=== PATIENT | male | born 1990 | race Hispanic/Latino ===

== ENCOUNTER 2018-04-15 12:43 | Emergency (ER) | payer BC ==
[2018-04-15 14:16] LABS: #Basophils 0.1 thou/uL (0.0-0.2); #Lymphocytes 2.7 thou/uL (1.20-3.40); #Monocytes 0.5 thou/uL (0.11-0.59); #Neutrophils 3.3 thou/uL (1.40-6.50); %Eosinophils 0.7 % (0.0-10.0); %Lymphocytes 41.3 % (21.0-51.0); %Monocytes 6.8 % (0.0-10.0); %Neutrophils 50.1 % (42.0-75.0); Hemoglobin 14.4 g/dL (14.0-18.0); Mean Corpuscular Volume 87.8 fL (78.0-98.0); Mean Platelet Volume 6.3 fL (7.4-10.4); Platelet Count 433 thou/uL (130-400); Red Blood Cell (RBC) Count 4.98 mill/uL (4.70-6.10); White Blood Cell (WBC) Count 6.6 thou/uL (4.8-10.8)
[2018-04-15 14:40] LABS: ALT (SGPT) 37 U/L (8-55); AST (SGOT) 22 U/L (5-34); Albumin 4.6 g/dL (3.5-5.0); Alkaline Phosphatase 76 U/L (40-150); Anion Gap 14 mmol/L (10-20); BUN (Urea Nitrogen) 9 mg/dL (8.9-20.6); Bilirubin, Total 0.4 mg/dL (0.2-1.2); Calc. Creatinine Clearance 0 mL/min (70-130); Calcium 9.7 mg/dL (7.8-10.44); Carbon Dioxide 26 mmol/L (22-29); Chloride 102 mmol/L (98-107); Estimated GFR-MDRD Greater than 90; Globulin 3.9 g/dL (2.4-3.5); Glucose 95 mg/dL (70-105); Potassium 3.8 mmol/L (3.5-5.1); Protein, Total 8.5 g/dL (6.0-8.3); Sodium 138 mmol/L (136-145)
[2018-04-15 14:44] LABS: Bilirubin Negative (Negative); Blood, Urine Negative (Negative); Clarity CLEAR (Clear); Glucose, Urine (Dipstick) Negative (Negative); Leukocyte Negative (Negative); Nitrite Negative (Negative); Protein, Urine (Dipstick) Negative (Neg-Trace); Specific Gravity, Urine 1.003 (1.002-1.036); Urobilinogen 0.2 mg/dL (0.2-1.0)
== END 2018-04-15 15:41 | disposition home or self-care (01) ==
LOC: ERS 12:43
DX: K92.1 Melena (principal); R19.7 Diarrhea, unspecified
CPT/HCPCS: 80053; 81003; 82274; 85025; 86850; 86900; 86901; 87045; 87046; 87449; 87899; 99283

== ENCOUNTER 2019-06-06 16:22 | Emergency (ER) | payer BC | END 2019-06-06 17:31 | disposition left against medical advice (07) | LOC: ERS 16:22 | DX: Z53.21 Procedure and treatment not carried out due to patient leaving prior to being seen by health care provider (principal) ==

== ENCOUNTER 2019-07-10 03:30 | Emergency (ER) | payer BC ==
[2019-07-10] MEDS ORDERED: Morphine 4 MG/ML VIAL ONE (04:22)
[2019-07-10] MEDS ORDERED: Ondansetron PF 4 MG/2 ML Vial ONE (04:22)
[2019-07-10 04:53] LABS: Bacteria/HPF None Seen HPF (None Seen); Bilirubin Negative (Negative); Blood, Urine Negative (Negative); Clarity Clear (Clear); Glucose, Urine (Dipstick) Normal (Negative); Leukocyte Negative Leu/uL (Negative); Nitrite Negative (Negative); Protein, Urine (Dipstick) 30 mg/dL (Neg-Trace); RBC/HPF 0-3 HPF (0-3); Squamous Epithelial 0-3 HPF (0-3); Urobilinogen Normal mg/dL (Less than 2); WBC/HPF 0-3 HPF (0-3)
[2019-07-10 04:55] LABS: #Basophils 0.1 thou/uL (0.0-0.2); #Eosinphils 0.1 thou/uL (0.0-0.7); #Lymphocytes 3.6 thou/uL (1.20-3.40); #Monocytes 0.9 thou/uL (0.11-0.59); #Neutrophils 7.3 thou/uL (1.40-6.50); %Eosinophils 0.5 % (0.0-10.0); %Lymphocytes 30.1 % (21.0-51.0); %Monocytes 7.3 % (0.0-10.0); %Neutrophils 61.1 % (42.0-75.0); Hemoglobin 15.1 g/dL (14.0-18.0); Mean Corpuscular HGB CONC 33.6 g/dL (32.0-36.0); Mean Corpuscular Hemoglobin 29.2 pg (27.0-31.0); Mean Corpuscular Volume 87.1 fL (78.0-98.0); Mean Platelet Volume 6.8 fL (7.4-10.4); Platelet Count 404 thou/uL (130-400); RBC Distribution Width 11.9 % (11.5-14.5); Red Blood Cell (RBC) Count 5.17 mill/uL (4.70-6.10); White Blood Cell (WBC) Count 11.9 thou/uL (4.8-10.8)
[2019-07-10 05:18] LABS: ALT (SGPT) 22 U/L (8-55); AST (SGOT) 19 U/L (5-34); Albumin 4.5 g/dL (3.5-5.0); Alkaline Phosphatase 81 U/L (40-110); Anion Gap 15 mmol/L (10-20); BUN (Urea Nitrogen) 15 mg/dL (8.9-20.6); Bilirubin, Total 0.4 mg/dL (0.2-1.2); Calc. Creatinine Clearance 0 mL/min (70-130); Calcium 9.9 mg/dL (7.8-10.44); Carbon Dioxide 22 mmol/L (22-29); Chloride 105 mmol/L (98-107); Estimated GFR-MDRD Greater than 90; Globulin 3.9 g/dL (2.4-3.5); Glucose 117 mg/dL (70-105); Lipase 23 U/L (8-78); Protein, Total 8.4 g/dL (6.0-8.3); Sodium 138 mmol/L (136-145)
== END 2019-07-10 06:32 | disposition home or self-care (01) ==
LOC: ERS 03:30
DX: R19.7 Diarrhea, unspecified (principal); R11.2 Nausea with vomiting, unspecified; R10.811 Right upper quadrant abdominal tenderness; R10.817 Generalized abdominal tenderness; R10.9 Unspecified abdominal pain; F17.290 Nicotine dependence, other tobacco product, uncomplicated; Z79.891 Long term (current) use of opiate analgesic; Z79.899 Other long term (current) drug therapy
CPT/HCPCS: 80053; 81003; 81015; 83690; 85025; 96361; 96372; 96374; 96375; J0500; J2270; J2405

== ENCOUNTER 2019-07-12 18:16 | Emergency (ER) | payer BC ==
[~2019-07-12 18:16] MED LIST: Iopamidol-370 76% 500 ML 1 ML ONE
[2019-07-12] MEDS ORDERED: Ondansetron PF 4 MG/2 ML Vial ONE (20:43)
[2019-07-12] MEDS ORDERED: Morphine 4 MG/ML VIAL ONE (20:43)
[2019-07-12 20:59] LABS: #Basophils 0.1 thou/uL (0.0-0.2); #Eosinphils 0.1 thou/uL (0.0-0.7); #Lymphocytes 3.5 thou/uL (1.20-3.40); #Monocytes 0.8 thou/uL (0.11-0.59); #Neutrophils 5.2 thou/uL (1.40-6.50); %Basophils 0.8 % (0.0-1.0); %Eosinophils 0.5 % (0.0-10.0); %Lymphocytes 36.7 % (21.0-51.0); %Monocytes 7.9 % (0.0-10.0); %Neutrophils 54.1 % (42.0-75.0); Hemoglobin 15.2 g/dL (14.0-18.0); Mean Corpuscular HGB CONC 33.6 g/dL (32.0-36.0); Mean Corpuscular Hemoglobin 29.2 pg (27.0-31.0); Mean Corpuscular Volume 86.8 fL (78.0-98.0); Mean Platelet Volume 6.7 fL (7.4-10.4); Platelet Count 440 thou/uL (130-400); RBC Distribution Width 11.8 % (11.5-14.5); Red Blood Cell (RBC) Count 5.23 mill/uL (4.70-6.10); White Blood Cell (WBC) Count 9.6 thou/uL (4.8-10.8)
[2019-07-12 21:05] LABS: Bilirubin Negative (Negative); Blood, Urine Negative (Negative); Clarity Clear (Clear); Glucose, Urine (Dipstick) Normal (Negative); Leukocyte Negative Leu/uL (Negative); Nitrite Negative (Negative); Protein, Urine (Dipstick) 10 mg/dL (Neg-Trace); Urobilinogen Normal mg/dL (Less than 2)
[2019-07-12 21:22] LABS: ALT (SGPT) 56 U/L (8-55); AST (SGOT) 43 U/L (5-34); Albumin 4.7 g/dL (3.5-5.0); Alkaline Phosphatase 90 U/L (40-110); Anion Gap 16 mmol/L (10-20); BUN (Urea Nitrogen) 11 mg/dL (8.9-20.6); Bilirubin, Total 0.4 mg/dL (0.2-1.2); Calc. Creatinine Clearance 0 mL/min (70-130); Calcium 9.6 mg/dL (7.8-10.44); Carbon Dioxide 28 mmol/L (22-29); Chloride 102 mmol/L (98-107); Estimated GFR-MDRD 87; Globulin 3.9 g/dL (2.4-3.5); Glucose 80 mg/dL (70-105); Lipase 21 U/L (8-78); Potassium 3.4 mmol/L (3.5-5.1); Protein, Total 8.6 g/dL (6.0-8.3); Sodium 143 mmol/L (136-145)
--- NOTE | 2019-07-12 21:28 | CT ---
CT Abdomen Pelvis W Con HISTORY: Abdominal pain. Diarrhea and blood in stool. History of appendectomy. COMPARISON: None. FINDINGS: The lung bases are clear of infiltrates. There are diffuse fatty changes of the liver. The spleen pancreas and gallbladder regions appear unre markable. Right and left adrenal glands and right and left kidneys are normal in size. There is no significant periaortic or mesenteric adenopathy. CT of pelvis performed with contrast enhancement: Postop appendectomy changes are seen. No free fluid , adenopathy or mass. Postoperative changes at the L5-S1 level are noted, the right S1 pedicle screw is fractured as is the left. There is a moderate spondylolisthesis present and severe disc narrowing. IMPRESSION: 1. Fatty change of the liver. 2. Postoperative changes at the L5-S1 level.
== END 2019-07-12 21:53 | disposition home or self-care (01) ==
LOC: ERS 18:16
DX: R10.84 Generalized abdominal pain (principal); R19.7 Diarrhea, unspecified; R10.812 Left upper quadrant abdominal tenderness; F17.290 Nicotine dependence, other tobacco product, uncomplicated; Z79.891 Long term (current) use of opiate analgesic; Z79.899 Other long term (current) drug therapy
CPT/HCPCS: 74177; 80053; 81003; 83690; 85025; 96361; 96374; 96375; J2270; J2405; Q9967

== ENCOUNTER 2019-08-05 07:14 | Outpatient (CLI) | payer BC ==
--- NOTE | 2019-08-05 07:46 | ULT ---
Right upper quadrant ultrasound: 08/05/2019 COMPARISON: None HISTORY: Abdominal pain TECHNIQUE: Multiplanar grayscale sonographic imaging of the right upper quadrant obtained. FINDINGS: Imaged pancreas unremarkable. Pancreas is partially obscured by bowel gas. No focal liver lesion or intrahepatic biliary dilatation. No gallbladder wall thickening or pericholecystic fluid. No gallstones are noted. Common bile duct me asures 5-6 mm, within normal limits. Right kidney measures 10.5 cm in craniocaudal dimension and demonstrates no evidence for stone, hydro nephrosis, or mass lesion. IMPRESSION: No acute findings.
== END 2019-08-05 07:15 | disposition home or self-care (01) ==
LOC: BICULT 07:14
PROVIDERS: ATTEND Internal Medicine Gastroenterology
DX: R10.9 Unspecified abdominal pain (principal)
CPT/HCPCS: 76705

== ENCOUNTER 2022-03-09 16:16 | Emergency (ER) | payer BC ==
[2022-03-09 16:54] LABS: #Eosinphils 0.1 thou/uL (0.0-0.7); #Lymphocytes 2.2 thou/uL (1.20-3.40); #Monocytes 0.4 thou/uL (0.11-0.59); #Neutrophils 2.3 thou/uL (1.40-6.50); %Basophils 0.2 % (0.0-1.0); %Eosinophils 1.1 % (0.0-10.0); %Lymphocytes 44.8 % (21.0-51.0); %Monocytes 8.1 % (0.0-10.0); %Neutrophils 45.9 % (42.0-75.0); Hemoglobin 14.8 g/dL (14.0-18.0); Mean Corpuscular Hemoglobin 30.1 pg (27.0-31.0); Mean Corpuscular Volume 88.6 fL (78.0-98.0); Mean Platelet Volume 6.9 fL (7.4-10.4); Platelet Count 313 thou/uL (130-400); Red Blood Cell (RBC) Count 4.91 mill/uL (4.70-6.10); White Blood Cell (WBC) Count 4.9 thou/uL (4.8-10.8)
[2022-03-09 17:18] LABS: ALT (SGPT) 20 U/L (8-55); AST (SGOT) 19 U/L (5-34); Albumin 4.4 g/dL (3.5-5.0); Alkaline Phosphatase 70 U/L (40-110); Anion Gap 20 mmol/L (10-20); BUN (Urea Nitrogen) 14 mg/dL (8.9-20.6); Bilirubin, Total 0.5 mg/dL (0.2-1.2); Calc. Creatinine Clearance 0 mL/min (70-130); Calcium 9.7 mg/dL (7.8-10.44); Carbon Dioxide 18 mmol/L (22-29); Chloride 103 mmol/L (98-107); Estimated GFR 107; Globulin 3.4 g/dL (2.4-3.5); Glucose 116 mg/dL (70-105); Potassium 3.5 mmol/L (3.5-5.1); Protein, Total 7.8 g/dL (6.0-8.3); Sodium 137 mmol/L (136-145)
[2022-03-09 18:01] LABS: Bilirubin Negative (Negative); Blood, Urine Trace (Negative); Clarity Clear (Clear); Glucose, Urine (Dipstick) Normal (Negative); Ketone, Urine Trace mg/dL (Negative); Leukocyte Negative Leu/uL (Negative); Nitrite Negative (Negative); Protein, Urine (Dipstick) 100 mg/dL (Neg-Trace); Specific Gravity, Urine 1.021 (1.002-1.036); Urobilinogen Normal mg/dL (Less than 2); pH, Urine 5.5 (5.0-9.0)
[2022-03-09 18:02] LABS: Bacteria/HPF None Seen HPF (None Seen); RBC/HPF 0-3 HPF (0-3); Sperm/HPF 1+ HPF (None Seen); Squamous Epithelial 0-3 HPF (0-3); WBC/HPF 0-3 HPF (0-3)
[2022-03-09] MEDS ORDERED: Lorazepam 2 MG/ML VIAL ONE (18:31)
== END 2022-03-09 18:58 | disposition home or self-care (01) ==
LOC: ERS 16:16
DX: R56.9 Unspecified convulsions (principal); F17.290 Nicotine dependence, other tobacco product, uncomplicated
CPT/HCPCS: 36415; 70450; 71045; 80053; 81003; 81015; 84146; 84484; 85025; 93005; 96361; 96374; J2060